=== PATIENT | female | born 1985 | race Caucasian/White ===

== ENCOUNTER 2023-04-26 09:59 | Outpatient (AMB) | payer OTHER, SELFPAY ==
--- NOTE | 2023-04-26 10:10 | MHC.PC.OV ---
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 Patient is requesting referral for RETAIL LEADER. 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 Radha Nasocort Symbicort, Albuterol Needs Spacer Buproion SR 150 QAM, Citalopram 20mg MVI PMHx: Hypothyroidism, Anxiety, Depression & Diff concentration. Asthma, IBS/Constipation SurgHx: Ventral hernia repair, D&C of placenta after childbirth. [place] teeth FHx: Mom: Factor V Leiden, TIA, Arthritis, Anxiety. Dad: HLD - diet controlled, Pigment disersion Glaucoma. mGF CML. CAD, ID. mGM: Parkinsons, Afib & HF. pGF: Hypothyroid, ?CLL. pGF: Lung CA SocHx: Moved from [place], Nonsmoker, EtOH 3-7 dr per week. No drugs PFSH Medical History (Updated 04/26/23 @ 11:11 by John Paul Cervantes) Migraine headache Hypothyroid Near sighted Irritable bowel syndrome with constipation GERD (gastroesophageal reflux disease) Depression Anxiety Surgical History (Updated 04/26/23 @ 10:23 by Alana Zamarripa CMA) History of surgery of uterus H/O ventral hernia repair Family History (Updated 04/26/23 @ 10:30 by Alana Zamarripa CMA) Mother Factor 5 Leiden mutation, heterozygous High blood pressure Acute anxiety Father Asthma High cholesterol Acute anxiety Paternal Grandmother Thyroid disease Parkinsons Maternal Grandfather High blood pressure High cholesterol Cardiovascular disease Paternal Grandfather High cholesterol Lung cancer Sister Acute anxiety Depression Social History Housing: House Patient Tobacco Use Status: Never used Tobacco e-Cigarette/Vaping Use: Never Used service: No Current occupational status: employed 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 1. Little interest or pleasure in doing things: not at all 2. Feeling down, depressed, or hopeless: not at all 3. Trouble falling or staying asleep, or sleeping too much: several days 4. Feeling tired or having little energy: not at all 5. Poor appetite or overeating: several days 6. Feeling bad about yourself - or that you are a failure or have let yourself or your family down: not at all 7. Trouble concentrating on things, such as reading the newspaper or watching television: several days 8. Moving or speaking so slowly that other people could have noticed. Or the opposite - being so fidgety or restless that you have been moving around a lot more than usual: more than half the days 9. Thoughts that you would be better off or of hurting yourself in some way: not at all Total score: 5 Depression Screening Interpretation: Negative Depression Screening Done: Yes 05830 - PHQ-9 Billing: Yes Source: Developed by Drs. Ad Barnes, Nelida Bender, Alexei Arndt and colleagues, with an educational yadiel from [employer]. Thrive Questionnaire Date Thrive assessed: 04/26/23 I am a: Patient What is your living situation today?: I have a steady place to live Within the past 12 months, did the food you bought not last and you didn't have the money to get more?: Never true Within the past 12 months, did you worry whether your food would run out before you got money to buy more?: Never true Do you have trouble paying for medicines?: No Do you have trouble getting transportation to medical appointments?: No Do you have trouble paying your heating and electricity bill?: No Do you have trouble taking care of your child, family member or friend?: No Do you have trouble with day-to-day activities such as bathing, preparing meals, shopping, managing finances, etc.?: No Are you currently unemployed and looking for a job?: No Are you interested in more education?: No THRIVE Score: 0 TEREZA-7 AMB Questionnaire TEREZA-7 Date TEREZA - 7 assessed: 04/26/23 Feeling nervous, anxious, or on edge: 2 = More than half the days Not being able to stop or control worryin = Several days Worrying too much about different things: 1 = Several days Trouble relaxin = Several days Being so restless that it is hard to sit still: 2 = More than half the days Becoming easily annoyed or irritable: 1 = Several days Feeling afraid as if something awful might happen: 0 = Not at all Total TEREZA-7 score (0-4 normal; 5-9 mild; 10-14 moderate; 15-21 severe): 8 Source: Developed by Drs. Ad Barnes, Nelida Bender, Alexei Arndt and colleagues, with an educational yadiel from [employer]. TEREZA-7 Assessment Billing TEREZA-7 Assessment Tool: TEREZA-7 Assessment 80197 Review of Systems Const Denies chills, Denies fatigue, Denies fever(s), Denies headache(s) and Denies weakness ENT Denies dizziness and Denies headache(s) Card Denies chest pain, Denies lightheadedness, Denies dyspnea and Denies other (Palpitations) Resp Denies cough, Denies dyspnea, Denies wheezing and Denies other ( shortness of breath) Musc Denies numbness and Denies tingling Neuro Denies dizziness, Denies headache(s), Denies numbness, Denies tingling, Denies paresthesias and Denies weakness Psych Denies anxiety and Denies depression Endo Denies fatigue Aller/Immun Denies wheezing Physical exam (Primary Care) Vital Signs: Last Vital Signs Pulse 62 04/26/23 10:12 BP 122/72 04/26/23 10:12 Pulse Ox 100 04/26/23 10:12 Oxygen Delivery Method Room Air 04/26/23 10:12 BMI result Body Mass Index 24.7 Tobacco/Smoking Status: Tobacco use Status Tobacco use date assessed 04/26/23 04/26/23 10:18 Patient Tobacco Use Status Never used Tobacco 04/26/23 10:18 e-Cigarette/Vaping Use Never Used 04/26/23 10:18 PHQ-9: PHQ-9 Score PHQ-9: Total score 5 04/26/23 10:34 Depression Screening Interpretation: Negative Thrive Assessment: Date of Thrive Assessment Date Thrive assessed 04/26/23 04/26/23 10:34 Const General: no acute distress and well developed Nutritional Appearance: well nourished Orientation/consciousness: patient oriented x3 HENMT Head: Yes normocephalic and Yes atraumatic Eyes General: appearance normal, both eyes and all related structures Pupils: Equal, round and reactive pupils present EOM: EOMs intact bilaterally Resp Effort & Inspection: normal respiratory effort Auscultation: clear to auscultation bilaterally Cardio Rate: regular rate Rhythm: regular rhythm Heart sounds: S1 normal heart sound present, S2 normal heart sound present, no gallops, no murmurs and no rubs Neuro General: patient oriented x3 and gait normal Cranial nerves: Yes Equal, round and reactive pupils present Psych Affect: normal affect Assessment and Plan Assessment & Plan (1) Hypothyroid: Code(s): E03.9 - Hypothyroidism, unspecified Plan: Patient?has?been?on?levothyroxine?25?mcg?daily?for?chemically subclinical?hypothyroidism?but?with?symptoms. Prior?provider?had?placed?her?on?25?mcg?daily?and?has?been?stable?on?this. Will?continue?and?check?her?labs (2) Depression with anxiety: Code(s): F41.8 - Other specified anxiety disorders Plan: Stable?on citalopram?and?bupropion Continue?current?medications (3) Difficulty concentrating: Code(s): R41.840 - Attention and concentration deficit Plan: Patient?has?history?of?ADHD?in?her?prior?medication?records?which?will?be?scanned?in. Currently?not?on?any?controlled?substances?however?and?uses?bupropion. She?notes?that?she?may?want?to?increase?bupropion?at?some?point?and?we?can?discuss?this?at?a?subsequent?visit (4) Irritable bowel syndrome with constipation: Code(s): K58.1 - Irritable bowel syndrome with constipation Plan: Hydrate?well Try?a?soluble?fiber?tablet?such?as?FiberCon Can?continue?OTC?MiraLax?intermittently?as?well (5) Asthma: Code(s): J45.909 - Unspecified asthma, uncomplicated Plan: Lungs?are?clear?to?auscultation?today. Has?used?Symbicort?in?the?past?and?has?had?an?albuterol?inhaler?as?well. Will?refill?theses (6) Laboratory exam ordered as part of routine general medical examination: Code(s): Z00.00 - Encounter for general adult medical examination without abnormal findings Plan: Check?lab (7) Screening for cervical cancer: Code(s): Z12.4 - Encounter for screening for malignant neoplasm of cervix Plan: Patient?notes?she?is?due?for?a?follow-up?Pap?smear.??Requests?referral?to?OBGYN Referred Orders: Orders Comprehensive [place]. Panel Fast Today Z00.00 - Encounter for general adult medical examination without abnormal findings Microalbumin, Random (w Creat) Today I10 - Essential (primary) hypertension UA and rflx microscopic Today Z00.00 - Encounter for general adult medical examination without abnormal findings Vitamin D 25-OH Total Today E55.9 - Vitamin D deficiency, unspecified Lipid Panel Today Z00.00 - Encounter for general adult medical examination without abnormal findings Free T4 (Free Thyroxine) Today E03.9 - Hypothyroidism, unspecified Triiodothyronine T3 Total Today E03.9 - Hypothyroidism, unspecified Thyroid Stimulating Hormone Today E03.9 - Hypothyroidism, unspecified Referrals RETAIL LEADER Referral Z12.4 - Encounter for screening for malignant neoplasm of cervix Medications: New levothyroxine 25 mcg PO DAILY 90 days 90 tabs 2RF budesonide-formoterol 160-4.5 mcg/actuation (Symbicort) 1 puff inhalation BID 30 days 10.2 grams 2RF albuterol sulfate 90 mcg/actuation (ProAir HFA) 2 puffs inhalation Q4-6H 30 days PRN 8.5 grams 0RF shortness of breath or wheezing fexofenadine (Radha Allergy) 180 mg PO Q24H 90 days 90 tabs 3RF triamcinolone acetonide (Nasacort) administer into each nostril 1 spray intranasal DAILY 30 days 16.9 mL 3RF bupropion HCl 150 mg PO QAM 90 days 90 tabs 2RF inhalational spacing device (Julio Aerosol [place] Enhancer spacer) As directed, 999 days 1 ea 0RF J45.909 - Unspecified asthma, uncomplicated citalopram 20 mg PO DAILY 90 days 90 tabs 3RF Coding Level of Care Code New Pt Level 3 (79299) Diagnoses Hypothyroid E03.9 Depression with anxiety F41.8 Difficulty concentrating R41.840 Irritable bowel syndrome with constipation K58.1 Asthma J45.909 Laboratory exam ordered as part of routine general medical examination Z00.00 Screening for cervical cancer Z12.4 Additional Codes TEREZA-7 Assessment Billing - TEREZA-7 Assessment Tool: TEREZA-7 Assessment 60718 ([id number])
[2023-04-26 10:12] VITALS: BP 122/72; PULSE 62; O2SAT 100; BMI 24.7
== END 2023-04-26 11:27 | disposition home or self-care (01) ==
PROVIDERS: PCP Family Medicine; Visit Provider Family Medicine
DX: E03.9 Hypothyroidism, unspecified (principal); F41.8 Other specified anxiety disorders; R41.840 Attention and concentration deficit; K58.1 Irritable bowel syndrome with constipation; J45.909 Unspecified asthma, uncomplicated
CPT/HCPCS: 99203

== ENCOUNTER 2023-06-08 09:45 | Outpatient (REF) | payer OTHER, SELFPAY ==
[2023-06-08 18:36] LABS: CT PCR NOT DETECTED (Not Detect.); NG PCR NOT DETECTED (Not Detect.)
[2023-06-09 12:57] LABS: BV Int Neg Control Negative (Negative); BV Int Pos Control Positive (Positive)
[2023-06-13 20:48] LABS: HPV mRNA E6/E7 rflx Not Detected (Not Detected)
== END 2023-06-08 09:46 | disposition home or self-care (01) ==
LOC: HO.LNP 09:45
PROVIDERS: PCP Family Medicine; Visit Provider Advanced Practice Midwife
DX: Z01.419 Encounter for gynecological examination (general) (routine) without abnormal findings (principal); Z11.51 Encounter for screening for human papillomavirus (HPV); Z20.2 Contact with and (suspected) exposure to infections with a predominantly sexual mode of transmission
CPT/HCPCS: 0353U; 87480; 87510; 87624; 87660; 88142

== ENCOUNTER 2023-06-08 09:45 | Outpatient (AMB) | payer OTHER, SELFPAY ==
[2023-06-08 09:49] VITALS: BP 100/58; BMI 24.1
--- NOTE | 2023-06-08 09:49 | A.OFFVIS_ITS ---
Intake Vital Signs 06/08/23 09:49 Height 5 ft 5 in Weight 145 lb BMI 24.1 BP 100/58 L Intake Visit Reasons: New patient Annual Intake Note: Feeling a lump on her left breast but hasn't felt it in a while. 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 Specialist: Floral Department Specialist Present (Aidyn) Allergies cat dander Allergy (Mild, Verified 06/08/23 09:56) itchy, watery eyes, sneezing oxycodone Adverse Reaction (Mild, Verified 06/08/23 09:56) Dizziness Medication List - Last Reconciled 06/08/23 by Mercedes Long CNM albuterol sulfate 90 mcg/actuation (ProAir HFA) 2 puffs inhalation Q4-6H PRN 30 days budesonide-formoterol 160-4.5 mcg/actuation (Symbicort) 1 puff inhalation BID 30 days bupropion HCl 150 mg PO QAM 90 days citalopram 20 mg PO DAILY 90 days fexofenadine (Radha Allergy) 180 mg PO Q24H 90 days inhalational spacing device (Julio Aerosol [place] Enhancer spacer) As directed, 999 days levonorgestrel (Mirena) intrauterine levothyroxine 25 mcg PO DAILY 90 days triamcinolone acetonide (Nasacort) 1 spray intranasal DAILY 30 days Is last menstrual period known: No Post menopausal: No HPI New patient Annual HPI Details Patient is here as a new chaplaincy exam she has moved too many places with schooling and training. 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 She has a 5-year-old child she has a Mirena IUD that was inserted after her child was born. She did have a prolonged labor with a large baby and a prolonged 2nd stage and she was augmented so she did have a hemorrhage with partially retained placenta that was removed in his localized D&C to remove the stuck lobe of the placenta. She wonders about pelvic muscle tone but she has not sure she has time for PT but she is aware that that is an option. She is using the Mirena for control but it also does help with powerhouse engineer periods she only had a very tiny gap of a month or so between stopping control pills and conceiving so she never noticed symptoms of ovulation or anything like that though she did is calendar and conceived right away. She only gets light little spotting every now and then with the Mirena. Patient felt a lump in her left breast around 04:00 o'clock around March and it bothered her for a while and then she kind of forgot about it when she was seeing her new primary in April she still is a little bit concerned even though sometimes she can feel it less and can not fully find it today. Says her could feel it too. [facility] Medical History Migraine headache Hypothyroid Near sighted Irritable bowel syndrome with constipation GERD (gastroesophageal reflux disease) Depression Anxiety Surgical History History of surgery of uterus H/O ventral hernia repair Family History Mother Factor 5 Leiden mutation, heterozygous High blood pressure Acute anxiety Father Asthma High cholesterol Acute anxiety Paternal Grandmother Thyroid disease Parkinsons Maternal Grandfather High blood pressure High cholesterol Cardiovascular disease Paternal Grandfather High cholesterol Lung cancer Sister Acute anxiety Depression Social History (Updated 06/08/23 @ 09:58 by PATRICIA De León) Housing: House Alcohol intake: current Alcohol intake frequency: a few times a week Patient Tobacco Use Status: Never used Tobacco e-Cigarette/Vaping Use: Never Used service: No Current occupational status: employed 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 [employer] Cognitive needs: No Hearing needs: No Vision needs: Yes Female Reproductive History Menstrual Age of Menarche: 14 Duration of menses: other control method: progestin IUCD Total pregnancies: 1 Full term: 1 Number of Living Children: 1 Physical Exam Vital Signs: Last Vital Signs BP 100/58 L 06/08/23 09:49 BMI result Body Mass Index 24.1 Const General: healthy appearing, comfortable, no acute distress, well developed and alert Nutritional Appearance: average body habitus Orientation/consciousness: patient oriented x3 Limitations: no limitations HEENT Head: Yes normocephalic Neck Neck: Yes normal visual inspection Chest Other: Her left breast is larger than her right but I could not appreciate a mass in the area that the patient felt it in at 04:00 o'clock on the left breast nevertheless I will have her have a mammogram and ultrasound in that breast. Chest palpation & inspection: normal inspection of the chest Breast/axilla inspection: normal inspection of the breasts and normal inspection of the axillae Breast/axilla palpation: normal palpation of the breasts and normal palpation of the axillae Resp Effort & Inspection: normal respiratory effort GI Inspection: Yes normal to inspection, No Abdominal wall edema and No distended Palpation (GI): Soft to palpation and nontender Other: Normal external exam vagina pink and normal cervix multiparous pink smooth with Mirena string easily visible uterus small anteverted mobile nontender adnexa nontender good tone with Kegel. General: Yes bladder normal to palpation External Female Exam: normal external appearance and normal appearance of the urethra Speculum Exam - Vagina: normal appearance of the vagina, normal palpation and normal vaginal discharge Speculum Exam - Cervix: normal appearance of the cervix, normal palpation and nontender Bimanual exam- vagina & uterus: normal bimanual exam, normal palpation, uterine size normal, bladder normal to palpation, consistency normal, normal palpation, uterine mobility normal, uterine shape normal, No Cervical tenderness present, non-tender and no cervical motion tenderness Bimanual Exam- Adnexa, other: normal adnexae, no masses, normal and No adnexal tenderness Neuro General: patient oriented x3 Assessment & Plan Assessment & Plan (1) Breast mass: Comment: Patient feels mass at 04:00 o'clock left breast occasionally more prominent than other times, since March. Code(s): N63.0 - Unspecified lump in unspecified breast (2) Well woman exam with routine gynecological exam: Code(s): Z01.419 - Encounter for gynecological examination (general) (routine) without abnormal findings (3) Screening for cervical cancer: Code(s): Z12.4 - Encounter for screening for malignant neoplasm of cervix (4) Encounter for screening examination for sexually transmitted disease: Code(s): Z11.3 - Encounter for screening for infections with a predominantly sexual mode of transmission (5) Presence of 52 mg levonorgestrel-releasing intrauterine device (IUD): Comment: Inserted about 8 weeks 5 years ago in [place]. Code(s): Z97.5 - Presence of (intrauterine) contraceptive device Plan -----Discussed in this visit the following: healthy balanced diet, regular and consistent exercise, getting recommended health screens, doing the best she can for her particular health concerns, kegel exercises, pap smear screening and fo llowup recommendations, mammography screening and SBE, normal changes in cycles in her life stage--- . Reviewed that while the package still says 5 years there are new or recommendations said it can be left in longer but there is no way to tell exactly when the hormonal effect diminishes however extensive discussion was done around paying close attention to how she feels in both subtle ways and more obvious ways in terms of return to menses reviewed warning signs or symptoms of ovulation that she should be alert to and if she did ever suspect that ovulation had return and therefore menses would soon return that would be a sign that there was insufficient hormonal reserve in the Mirena anymore and she should use another method of control as a backup method such as condoms. The Mirena could be replaced at any time that she so chooses though if she does get menses it is best to do it at the time of menses. Discussed her concern about the breast mass she is really hoping it is nothing more than a small cyst but she would feel better having it checked out so I am ordering a diagnostic mammogram and ultrasound for that breast. She did not feel she needed any other blood work. RTC p.r.n. for chaplaincy annual or when desires for Mirena replacement. Orders: Orders Bacterial Vaginosis Panel Today Z11.3 - Encounter for screening for infections with a predominantly sexual mode of transmission MM tomosynthesis diagnostic LT Today N63.0 - Unspecified lump in unspecified breast US breast LT complete Today N63.0 - Unspecified lump in unspecified breast CT NG by PCR Today Z11.3 - Encounter for screening for infections with a predominantly sexual mode of transmission Pap Smear Today Z12.4 - Encounter for screening for malignant neoplasm of cervix Coding Level of Care Code New Pt Prev Care 18-39yr([id number] Diagnoses Breast mass N63.0 Well woman exam with routine gynecological exam Z01.419 Screening for cervical cancer Z12.4 Encounter for screening examination for sexually transmitted disease Z11.3 Presence of 52 mg levonorgestrel-releasing intrauterine device (IUD) Z97.5
== END 2023-06-08 11:10 | disposition home or self-care (01) ==
PROVIDERS: PCP Family Medicine; Visit Provider Advanced Practice Midwife
DX: Z01.419 Encounter for gynecological examination (general) (routine) without abnormal findings (principal); N63.23 Unspecified lump in the left breast, lower outer quadrant; Z97.5 Presence of (intrauterine) contraceptive device
CPT/HCPCS: 99385

== ENCOUNTER → 2023-07-06 14:30 | Outpatient (BNV) | payer OTHER, SELFPAY | PROVIDERS: PCP Family Medicine; Visit Provider Radiology Diagnostic Radiology | DX: N63.23 Unspecified lump in the left breast, lower outer quadrant (principal) | CPT/HCPCS: 76642; 77062; 77066 ==

== ENCOUNTER 2023-07-06 14:35 | Outpatient (REF) | payer OTHER, SELFPAY ==
--- NOTE | ~2023-07-06 | MM_ITS ---
EXAMINATION: MM DIAGNOSTIC DIGITAL BREAST TOMOSYNTHESIS, BILATERAL US BREAST LIMITED, LEFT MAMMOGRAPHY: CLINICAL INFORMATION: 38-year-old female complaining of palpable abnormality left breast 4:00 axis, of which she nor her provider could feel currently. Patient states it comes and goes . COMPARISON: Mammography: None. Baseline exam. TECHNIQUE: Digital breast tomosynthesis is performed in both the craniocaudal and mediolateral oblique views along with computer-aided detection (CAD). Synthesized 2D images are generated from the tomosynthesis. FINDINGS: The breasts are heterogeneously dense, which may obscure small masses (ACR BI-RADS breast composition Category c). There are no suspicious masses, suspicious grouped calcifications, or areas of architectural distortion in either breast. There is no mammographic abnormality in the 4:00 axis left breast. Bilateral sternalis muscles. There are no skin or axillary abnormalities. ULTRASOUND: CLINICAL INFORMATION: As above. COMPARISON: None TECHNIQUE: Targeted sonographic evaluation was performed using a high frequency linear transducer. Left breast lower outer quadrant was scanned. Selected archived documentation. FINDINGS: LEFT BREAST: There is a mixture of fatty and fibroglandular tissue. No suspicious mass is seen. There is no pathologic acoustic shadowing. No cystic abnormalities. No correlate to the region of palpable concern. MM/MM tomosynthesis diagnostic BI IMPRESSION: No mammographic evidence of malignancy in either breast. Palpable focus in the left breast 4:00 axis demonstrates no mammographic or sonographic correlate. Recommend clinical management. OVERALL ASSESSMENT: Mammography: BI-RADS 1 - Negative Ultrasound: BI-RADS 1 - Negative RECOMMENDATION: 1. Patient should be managed based on the clinical impression. Decision to proceed with biopsy should be based on clinical grounds and degree of clinical concern. 2. Otherwise, routine annual screening mammography at age 42. This patient's information was entered into a reminder system with a target due date for their next mammogram.
== END 2023-07-06 14:36 | disposition home or self-care (01) ==
LOC: HO.MAMMO 14:35
PROVIDERS: PCP Family Medicine; Visit Provider Advanced Practice Midwife
DX: N63.23 Unspecified lump in the left breast, lower outer quadrant (principal)
CPT/HCPCS: 76642; 77062; 77066

== ENCOUNTER → 2024-02-15 16:27 | Outpatient (AMB) | payer OTHER, SELFPAY ==
--- NOTE | 2024-02-15 16:37 | MHC.PC.OV ---
Vital Signs 02/15/24 16:41 Height 5 ft 5 in Weight 148 lb 8 oz BMI 24.7 BP 120/60 Blood Pressure Location Rt brachial Position Sitting Respiration 14 Pulse 69 Pulse Source Pulse Oximeter Temp 98.7 F Temp Source Oral Pulse Oximetry (%) 98 Oxygen Delivery Method Room Air Intake Visit Reasons: Resched 12/20: CPE with f/u labs and health maint Intake Note: CPE Allergies cat dander Allergy (Mild, Verified 02/15/24 16:38) itchy, watery eyes, sneezing oxycodone Adverse Reaction (Mild, Verified 02/15/24 16:38) Dizziness Medication List - Last Reconciled 02/15/24 by Peng Mantilla MD albuterol sulfate 90 mcg/actuation (ProAir HFA) 2 puffs inhalation Q4-6H PRN 30 days budesonide-formoterol 160-4.5 mcg/actuation (Symbicort) 1 puff inhalation BID 30 days bupropion HCl SR 150 mg PO QAM 90 days citalopram 30 mg PO DAILY fexofenadine (Radha Allergy) 180 mg PO Q24H 90 days inhalational spacing device (Julio Aerosol [place] Enhancer spacer) As directed, 999 days levonorgestrel (Mirena) intrauterine levothyroxine 25 mcg PO DAILY 90 days ondansetron 4 mg PO Q8H PRN 30 days triamcinolone acetonide (Nasacort) 1 spray intranasal DAILY 30 days Tobacco use date assessed: 02/15/24 Dental Screening Dental Screen Date: 02/15/24 Did you have a dental visit in the last 12 months?: Yes Did you have a dental problem in the last 6 months where you did not have access to dental care?: No Was dental information given to patient?: Patient has dentist HPI Resched 12/20: CPE with f/u labs and health maint HPI Details 38 y/o female presents for a CPE with f/u labs and health maintenance. Had seen ObGyn for breast mass 06/08/23 - they had ordered diagnostic mammogram and ultrasound. Mammogram 07/06/23 showed no mammographic evidence of malignancy in either breast. She is up to date with her pap smear and had done this in the spring. Labs drawn 12/21/23 at [facility]. TC 156. Triglycerides 51. HDL 80. LDL 65. Low vitamin D level. Notes seasonal affective disorder. She notes she is on omeprazole for GERD. Has not been exercising regularly. HPI Comments History of Present Illness Details Documentation assistance for Peng Mantilla MD, was provided by John Paul Cervantes, Enterprise Application Developer on 02/15/2024 at 4:58 PM EST. I, Dr. Mantilla, have read, observed, and verified documentation. PFS Medical History Migraine headache Hypothyroid Near sighted Irritable bowel syndrome with constipation GERD (gastroesophageal reflux disease) Depression Anxiety Surgical History History of surgery of uterus H/O ventral hernia repair Family History Mother Factor 5 Leiden mutation, heterozygous High blood pressure Acute anxiety Father Asthma High cholesterol Acute anxiety Paternal Grandmother Thyroid disease Parkinsons Maternal Grandfather High blood pressure High cholesterol Cardiovascular disease Paternal Grandfather High cholesterol Lung cancer Sister Acute anxiety Depression Social History Housing: House Alcohol intake: current Alcohol intake frequency: a few times a week Patient Tobacco Use Status: Never used Tobacco e-Cigarette/Vaping Use: Never Used Second Hand Smoke Exposure: No service: No Current occupational status: employed 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 1. Little interest or pleasure in doing things: not at all 2. Feeling down, depressed, or hopeless: not at all 3. Trouble falling or staying asleep, or sleeping too much: not at all 4. Feeling tired or having little energy: more than half the days 5. Poor appetite or overeating: not at all 6. Feeling bad about yourself - or that you are a failure or have let yourself or your family down: several days 7. Trouble concentrating on things, such as reading the newspaper or watching television: several days 8. Moving or speaking so slowly that other people could have noticed. Or the opposite - being so fidgety or restless that you have been moving around a lot more than usual: not at all 9. Thoughts that you would be better off or of hurting yourself in some way: not at all Total score: 4 Depression Screening Interpretation: Negative Depression Screening Done: Yes 63178 - PHQ-9 Billing: Yes Source: Developed by Drs. Ad Barnes, Nelida Bender, Alexei Arndt and colleagues, with an educational yadiel from [employer]. Thrive Questionnaire Date Thrive assessed: 02/15/24 I am a: Patient What is your living situation today?: I have a steady place to live Within the past 12 months, did the food you bought not last and you didn't have the money to get more?: Never true Within the past 12 months, did you worry whether your food would run out before you got money to buy more?: Never true Do you have trouble paying for medicines?: No Do you have trouble getting transportation to medical appointments?: No Do you have trouble paying your heating and electricity bill?: No Do you have trouble taking care of your child, family member or friend?: No Do you have trouble with day-to-day activities such as bathing, preparing meals, shopping, managing finances, etc.?: No Are you currently unemployed and looking for a job?: No Are you interested in more education?: No Please select the resources that you would like help with: None Currently or been in a relationship where the following occur: No concerns reported THRIVE Score: 0 AUDIT C Alcohol Use Questionnaire (AUDIT-C) 1. How often do you have a drink containing alcohol?: 2-3 times a week 2. How many drinks containing alcohol do you have on a typical day when you are drinking?: 1 or 2 3. How often do you have six or more drinks on one occasion?: Never Total Score: 3 TEREZA-7 AMB Questionnaire TEREZA-7 Date TEREZA - 7 assessed: 02/15/24 Feeling nervous, anxious, or on edge: 2 = More than half the days Not being able to stop or control worryin = Several days Worrying too much about different things: 1 = Several days Trouble relaxin = Nearly every day Being so restless that it is hard to sit still: 1 = Several days Becoming easily annoyed or irritable: 1 = Several days Feeling afraid as if something awful might happen: 1 = Several days Total TEREZA-7 score (0-4 normal; 5-9 mild; 10-14 moderate; 15-21 severe): 10 Source: Developed by Drs. Ad Barnes, Nelida Bender, Alexei Arndt and colleagues, with an educational yadiel from [employer]. TEREZA-7 Assessment Billing TEREZA-7 Assessment Tool: TEREZA-7 Assessment 42889 Review of Systems Const Denies chills, Denies fatigue, Denies fever(s), Denies headache(s) and Denies weakness Eyes Denies change in vision ENT Denies dizziness, Denies headache(s), Denies hearing loss, Denies nasal congestion, Denies sinus pain, Denies sinus pressure and Denies sore throat Card Denies chest pain, Denies lightheadedness, Denies dyspnea and Denies other (palpitations) Resp Denies cough, Denies dyspnea and Denies wheezing GI Denies abdominal pain, Denies melena, Denies hematochezia, Denies change in bowel habits, Denies dyspepsia and Denies nausea Denies hematuria and Denies dysuria Musc Denies abnormal gait, Denies myalgias, Denies arthralgias, Denies numbness and Denies tingling Skin/Breast Denies rash, Denies unusual bruising and Denies wounds Neuro Denies abnormal gait, Denies dizziness, Denies headache(s), Denies memory loss, Denies numbness, Denies Sensory deficit (Neuro), Denies tingling and Denies weakness Psych Denies anxiety, Denies depression and Denies memory loss Endo Denies cold intolerance, Denies fatigue, Denies heat intolerance, Denies polydipsia and Denies polyuria Kirill/Lymph Denies easy bleeding and Denies easy bruising Aller/Immun Denies wheezing Physical exam (Primary Care) Vital Signs: Last Vital Signs Temp 98.7 F 02/15/24 16:41 Pulse 69 02/15/24 16:41 Resp 14 02/15/24 16:41 BP 120/60 02/15/24 16:41 Pulse Ox 98 02/15/24 16:41 Oxygen Delivery Method Room Air 02/15/24 16:41 BMI result Body Mass Index 24.7 Tobacco/Smoking Status: Tobacco use Status Tobacco use date assessed 02/15/24 02/15/24 16:44 Patient Tobacco Use Status Never used Tobacco 02/15/24 16:44 e-Cigarette/Vaping Use Never Used 02/15/24 16:44 PHQ-9: PHQ-9 Score PHQ-9: Total score 4 02/15/24 16:44 Depression Screening Interpretation: Negative Thrive Assessment: Date of Thrive Assessment Date Thrive assessed 02/15/24 02/15/24 16:44 Currently or been in a relationship where the following occur: No concerns reported Const General: no acute distress, well developed, alert and awake Nutritional Appearance: well nourished Orientation/consciousness: patient oriented x3 HENMT Head: Yes normocephalic and Yes atraumatic Ears: hearing grossly normal bilaterally and TM's normal bilaterally General nose exam: Normal external nose present and Normal nares present Mouth: Normal oral and palatal mucosa present and moist mucous membranes Teeth and gingiva: dentition normal Throat: Yes posterior oropharynx normal Eyes General: appearance normal, both eyes and all related structures Pupils: Equal, round and reactive pupils present and Pupil accommodation reflex normal EOM: EOMs intact bilaterally Neck Neck: Yes normal visual inspection, Yes no lymphadenopathy and Yes trachea midline Thyroid: Thyroid normal Carotids: no bruits Lymphatic: no lymphadenopathy noted Chest Chest palpation & inspection: normal inspection of the chest Resp Effort & Inspection: normal respiratory effort Auscultation: clear to auscultation bilaterally Cardio Rate: regular rate Rhythm: regular rhythm Heart sounds: S1 normal heart sound present, S2 normal heart sound present, no gallops, no murmurs and no rubs Bruits: no abdominal aortic bruits and no carotid bruits GI Palpation (GI): No Abdominal aortic bruit present, Soft to palpation, nontender, No hepatosplenomegaly present and No Rebound tenderness present Auscultation: normal bowel sounds General: Yes no CVA tenderness Back/Spine/Pelvis Back: no CVA tenderness Cervical Spine: cervical ROM normal and No Cervical spine tenderness Thoracic/Lumbar Spine: thoraco-lumbar ROM normal, No pain with thoraco-lumbar ROM, No thoracic spinal tenderness and No lumbar spinal tenderness Skin Lesions: no lesions Rashes: no rashes Trauma: no lacerations or abrasions Wounds: no wounds Nails: normal Neuro General: patient oriented x3 Cranial nerves: Yes Equal, round and reactive pupils present Cognition (Neuro): normal cognition Gait exam (Neuro): Normal gait present Motor exam (neuro): 5/5 motor strength present throughout Sensory Exam: No Sensory deficit (Neuro) Deep tendon reflexes (DTR's): Right patellar reflex intensity grade: 2+ and Left patellar reflex intensity grade: 2+ Extrem General: Yes normal to inspection and No edema Psych Appearance: grossly normal Affect: normal affect Attitude: cooperative Thought process: Normal thought process present Coding Level of Care Code Est Pt Level 3 (05841) Est Pt Prev Care 18-39y(89056) Diagnoses Adult general medical exam Z00.00 Breast mass N63.0 GERD (gastroesophageal reflux disease) K21.9 Low vitamin D level R79.89 Seasonal affective disorder F33.8 Screening for cervical cancer Z12.4 Breast cancer screening by mammogram Z12.31 Additional Codes TEREZA-7 Assessment Billing - TREEZA-7 Assessment Tool: TEREZA-7 Assessment 62187 ([id number]) PHQ-9 - 22789 - PHQ-9 Billing: Yes ([id number]) Assessment & Plan Assessment & Plan (1) Adult general medical exam: Code(s): Z00.00 - Encounter for general adult medical examination without abnormal findings Category: Medical Plan: 38-year-old?female?presents?for?complete?physical?exam Encouraged?healthy?diet?with?active?lifestyle?and?plenty?of?exercise (2) Breast mass: Comment: Patient feels mass at 04:00 o'clock left breast occasionally more prominent than other times, since March. Code(s): N63.0 - Unspecified lump in unspecified breast Category: Medical Plan: Imaging?did?not?show?any?lesions?suspicious?for?malignancy Patient?says?this?has?resolved.??She?will?let?me?know?if?she?has?any?further?problems. (3) GERD (gastroesophageal reflux disease): Code(s): K21.9 - Gastro-esophageal reflux disease without esophagitis Category: Medical Plan: GERD?and?IBS She?has?OTC?PPI?and?H2?giovani?at?home. Advised?she?use?these?in?a?preventative?strategy She?would?like?a?referral?to?gastroenterology.??Will?refer?to?C?GI (4) Low vitamin D level: Code(s): R79.89 - Other specified abnormal findings of blood chemistry Category: Medical Plan: Advised?she?use?an?OTC?vitamin-D?supplement Will?recheck?labs?when?we?recheck?her?thyroid?levels (5) Seasonal affective disorder: Code(s): F33.8 - Other recurrent depressive disorders Category: Medical Plan: Advised?full?spectrum?light (6) Screening for cervical cancer: Comment: 06/08/2023 Pap is negative with negative HPV Code(s): Z12.4 - Encounter for screening for malignant neoplasm of cervix Category: Medical Plan: Followed?by?Mercedes?Desha?and?patient?had?a?recent?Pap?smear?which?was?negative Up-to-date Follow-up?with?professor of communication and writing?as?recommended (7) Breast cancer screening by mammogram: Code(s): Z12.31 - Encounter for screening mammogram for malignant neoplasm of breast Category: Medical Plan: Patient?had?mammogram?and?ultrasound?for?concern?of?breast?lump?which?she?says?has?resolved.??No?evidence?of?malignancy?was?seen. She?will?let?me?know?if?she?has?any?further?problems Will?resume?screening?at?age?42?or?sooner?if?any?problems. Orders: Referrals Gastroenterology Referral K21.9 - Gastro-esophageal reflux disease without esophagitis, K58.1 - Irritable bowel syndrome with constipation Medications: Changed From citalopram 30 mg PO DAILY To citalopram 30 mg (1.5 x 20 mg) PO DAILY 90 days 135 tabs 2RF
[2024-02-15 16:41] VITALS: BP 120/60; PULSE 69; RESP 14; TEMP 37.1; O2SAT 98; BMI 24.7
== END ==
PROVIDERS: PCP Family Medicine; Visit Provider Family Medicine
DX: Z00.00 Encounter for general adult medical examination without abnormal findings (principal); N63.0 Unspecified lump in unspecified breast; F33.8 Other recurrent depressive disorders; K21.9 Gastro-esophageal reflux disease without esophagitis; R79.89 Other specified abnormal findings of blood chemistry; Z12.31 Encounter for screening mammogram for malignant neoplasm of breast

== ENCOUNTER → 2024-02-15 16:27 | Outpatient (BNVA) | payer OTHER, SELFPAY | PROVIDERS: PCP Family Medicine; Visit Provider Family Medicine | DX: Z00.00 Encounter for general adult medical examination without abnormal findings (principal); N63.0 Unspecified lump in unspecified breast; K21.9 Gastro-esophageal reflux disease without esophagitis; E55.9 Vitamin D deficiency, unspecified; F33.8 Other recurrent depressive disorders; K58.1 Irritable bowel syndrome with constipation | CPT/HCPCS: 96127 ==

== ENCOUNTER 2024-06-13 10:11 | Outpatient (REF) | payer OTHER, SELFPAY ==
--- OUTSIDE RECORDS SUMMARY | 2024-06-13 12:29 | XMS_ITS | Clinical Summary ---
Author Organization [employer] Address [address] [place] [address] Care Team Providers Care Bridge Design Engineer Name Role Phone Unavailable Primary Care Provider [...]
[2024-06-14 11:25] LABS: Bacterial Vaginosis PCR NEGATIVE (Negative); Candida Group PCR NOT DETECTED (Not Detect); Candida glab krusei PCR NOT DETECTED (Not Detect); Trichomonas vaginalis PCR NOT DETECTED (Not Detect)
== END 2024-06-13 10:12 | disposition home or self-care (01) ==
LOC: HO.LAB 10:11
PROVIDERS: PCP Family Medicine; Visit Provider Advanced Practice Midwife
DX: N89.8 Other specified noninflammatory disorders of vagina (principal)
CPT/HCPCS: 81515

== ENCOUNTER 2024-06-13 10:11 | Outpatient (AMB) | payer OTHER, SELFPAY ==
--- NOTE | 2024-06-13 10:10 | MHC.OFFVIS ---
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 Telephone Instrument Supervisor Required: No Telephone Instrument Supervisor Services: Telephone Instrument Supervisor Present Information Interpreted: clinical only Beauty Artist: Beauty Artist Present Allergies cat dander Allergy (Mild, Verified 06/13/24 10:23) itchy, watery eyes, sneezing oxycodone Adverse Reaction (Mild, Verified 06/13/24 10:23) Dizziness Medication List - Last Reconciled 06/13/24 by Mercedes Long CNM albuterol sulfate 90 mcg/actuation (ProAir HFA) 2 puffs inhalation Q4-6H PRN 30 days budesonide-formoterol 160-4.5 mcg/actuation (Symbicort) 1 puff inhalation BID 30 days bupropion HCl SR 150 mg PO QAM 90 days citalopram 30 mg (1.5 x 20 mg) PO DAILY 90 days fexofenadine (Radha Allergy) 180 mg PO Q24H 90 days inhalational spacing device (Julio Aerosol [place] Enhancer spacer) As directed, 999 days levonorgestrel (Mirena) intrauterine levothyroxine 25 mcg PO DAILY 90 days ondansetron 4 mg PO Q8H PRN 30 days triamcinolone acetonide (Nasacort) 1 spray intranasal DAILY 30 days Is last menstrual period known: No (IUD) HPI HPI 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 She is not having any entry level electrician concerns at all. Her periods have not returned yet occasionally she might get a little bit of spotting but that is about it. She has had the IUD in for about 6 years now she had it put in about 2 months after her 6-year-old was born. She likes the IUD and would be happy to replace it she knows it can stay in for up to 8 years she just wants to be sure she does not get caught unawares if there is some change in availability of long-term methods of control. Imaging last year for the breast lump that she was feeling was negative and in fact the lump that she palpated went away on its own so she has feels very reassured and she decided not to follow through with the breast surgery referral. She does not have any other health concerns she follows through with her primary care provider, Dr. Mantilla. [facility] Medical History Migraine headache Hypothyroid Near sighted Irritable bowel syndrome with constipation GERD (gastroesophageal reflux disease) Depression Anxiety Surgical History History of surgery of uterus H/O ventral hernia repair Family History Mother Factor 5 Leiden mutation, heterozygous High blood pressure Acute anxiety Father Asthma High cholesterol Acute anxiety Paternal Grandmother Thyroid disease Parkinsons Maternal Grandfather High blood pressure High cholesterol Cardiovascular disease Paternal Grandfather High cholesterol Lung cancer Sister Acute anxiety Depression Social History Housing: House Alcohol intake: current Alcohol intake frequency: a few times a week Patient Tobacco Use Status: Never used Tobacco e-Cigarette/Vaping Use: Never Used Second Hand Smoke Exposure: No service: No Current occupational status: employed 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 [employer] Cognitive needs: No Hearing needs: No Vision needs: Yes Female Reproductive History Menstrual Age of Menarche: 14 Duration of menses: 3-5 days control method: progestin IUCD Total pregnancies: 1 Full term: 1 Date of last pap smear: 06/09/23 (negative) History of abnormal pap smear: No Physical Exam Vital Signs: Last Vital Signs BP 118/70 06/13/24 10:13 BMI result Body Mass Index 25.3 Const General: healthy appearing, comfortable, no acute distress, well developed and alert Nutritional Appearance: average body habitus Orientation/consciousness: patient oriented x3 Limitations: no limitations HEENT Head: Yes normocephalic Neck Neck: Yes normal visual inspection Chest Chest palpation & inspection: normal inspection of the chest Breast/axilla inspection: normal inspection of the breasts and normal inspection of the axillae Breast/axilla palpation: normal palpation of the breasts and normal palpation of the axillae Resp Effort & Inspection: normal respiratory effort GI Inspection: Yes normal to inspection, No Abdominal wall edema and No distended Palpation (GI): Soft to palpation and nontender Other: External exam within vagina pink and moist cervix multiparous pink smooth healthy appearing with Mirena string visible clear discharge with small amount of white discharge does not appear consistent with bacterial vaginosis at this time. Patient had no concern about STDs but did want to check for bacterial vaginosis and she will decide on treatment if it shows up discussed all alternatives to metronidazole and Metrogel including boric acid. General: Yes bladder normal to palpation External Female Exam: normal external appearance and normal appearance of the urethra Speculum Exam - Vagina: normal appearance of the vagina, normal palpation and normal vaginal discharge Speculum Exam - Cervix: normal appearance of the cervix, normal palpation and nontender Bimanual exam- vagina & uterus: normal bimanual exam, normal palpation, uterine size normal, bladder normal to palpation, consistency normal, normal palpation, uterine mobility normal, uterine shape normal, No Cervical tenderness present, non-tender and no cervical motion tenderness Bimanual Exam- Adnexa, other: normal adnexae, no masses, normal and No adnexal tenderness Neuro General: patient oriented x3 Assessment & Plan Assessment & Plan (1) Screening for cervical cancer: Comment: 06/08/2023 Pap is negative with negative HPV Code(s): Z12.4 - Encounter for screening for malignant neoplasm of cervix Category: Medical (2) Well woman exam with routine gynecological exam: Code(s): Z01.419 - Encounter for gynecological examination (general) (routine) without abnormal findings Category: Medical (3) Presence of 52 mg levonorgestrel-releasing intrauterine device (IUD): Comment: Inserted about 8 weeks 5 years ago in [place]. Code(s): Z97.5 - Presence of (intrauterine) contraceptive device Category: Social Hx Plan -----Discussed in this visit the following: healthy balanced diet, regular and consistent exercise, getting recommended health screens, doing the best she can for her particular health concerns, kegel exercises, pap smear screening and followup recommendations, mammography screening and SBE, normal changes in cycles in her life stage--- .External exam within vagina pink and moist cervix multiparous pink smooth healthy appearing with Mirena string visible clear discharge with small amount of white discharge does not appear consistent with bacterial vaginosis at this time. Patient had no concern about STDs but did want to check for bacterial vaginosis and she will decide on treatment if it shows up discussed all alternatives to metronidazole and Metrogel including boric acid. Discussed again issues with Mirena. Discussed replacement that if she does get periods that would definitely be time to consider replacement and at the start of the period would be the best time of all. Other than that she could give it the full 8 years if she chose. Discussed that if she desired I would prescribe misoprostol to use 6 hours and 2 hours pre procedure to aid in cervical softening however cervix did appear very multiparous and not super tightly closed. RTC 1 year or p.r.n. she will contact us if she decides it is time to replace the Mirena. Orders: Orders Bacterial Vaginosis Panel Today N89.8 - Other specified noninflammatory disorders of vagina Coding Level of Care Code Est Pt Prev Care 18-39y(69315) Diagnoses Screening for cervical cancer Z12.4 Well woman exam with routine gynecological exam Z01.419 Presence of 52 mg levonorgestrel-releasing intrauterine device (IUD) Z97.5
[2024-06-13 10:13] VITALS: BP 118/70; BMI 25.3
--- OUTSIDE RECORDS SUMMARY | 2024-06-13 11:29 | XMS_ITS | Clinical Summary ---
Author Organization [employer] Address [address] [place] [address] Care Team Providers Care Vibrating Screed Operator Name Role Phone Unavailable Primary Care Provider Unavailabl e Social History Tobacco Use Types Packs/Day Years Used Date Smoking Tobacco: Never Assessed Comments Unknown Sex and Gender Information Value Date Recorded Sex Assigned at Female 03/01/2023 3:35 PM EST Legal Sex Female 3:33 PM EST Gender Identity Female 03/01/2023 3:35 PM EST Sexual Orientation Choose not to disclose 2022 3:37 PM EST Plan of Treatment Health Maintenance Due Date Last Done Comments Depression Screening 1987 HIV Screening 1987 SDOH Screening 1987 Alcohol/Substance Use Screening 1999 Tobacco Screening 1999 Family Planning (PISQ) 2002 Hepatitis C Screening 2005 DTaP/Tdap/Td Vaccines (1 - Tdap) 2006 Hepatitis B Vaccines (1 of 3 - 19+ 3-dose series) 2006 Pap Smear 2008 Cervical Cancer Screening 2017 HPV/Cotest 2017 COVID-19 Vaccine ( - 2023-2 5 season) 2023 Influenza Vaccine (#1) 2023 Zoster Vaccines (1 of 2) 2037 RSV Patients and Pa tients Aged 60 years or older (1 - 1-dose 75+ series) 2062 HIB Vaccines Aged Out No longer eligi ble based on patient's age to complete this topic HPV Vaccines Aged Out No longer eligi ble based on patient's age to complete this topic Hepatitis A Vaccines Aged Out No long er eligible based on patient's age to complete this topic IPV Vaccines Aged Out No longer eligi ble based on patient's age to complete this topic Meningococcal Vaccine Aged Out No savannah noemy eligible based on patient's age to complete this topic Pneumococcal Vaccine: Pediat rics (0 to 5 Years) and At-Risk Patients (6 to 49) Years) Aged Out No longer eligible b ased on patient's age to complete this topic RSV under 20 months Aged Out No longe r eligible based on patient's age to complete this topic Rotavirus Vaccines Aged Out No longer eligible based on patient's age to complete this topic Insurance E[employer]
== END 2024-06-13 11:14 | disposition home or self-care (01) ==
LOC: HO.HWSM 10:12
PROVIDERS: PCP Family Medicine; Visit Provider Advanced Practice Midwife
DX: Z01.419 Encounter for gynecological examination (general) (routine) without abnormal findings (principal); Z97.5 Presence of (intrauterine) contraceptive device
CPT/HCPCS: 99395; 99459

== ENCOUNTER 2025-01-02 11:26 | Outpatient (AMB) | payer OTHER, SELFPAY ==
--- NOTE | 2025-01-02 11:31 | MHC.PC.OV ---
Vital Signs 01/02/25 11:35 Height 5 ft 5 in Weight 157 lb 4 oz BMI 26.2 BP 112/64 Blood Pressure Location Rt brachial Position Sitting Respiration 14 Pulse 94 Pulse Source Pulse Oximeter Temp 98.2 F Temp Source Temporal Artery Scan Pulse Oximetry (%) 98 Oxygen Delivery Method Room Air Intake Visit Reasons: Migraines getting worse Intake Note: Marva presents in the office today due to her Migraines. Patient would like a referral to Dermatology. Patient would like to check her thyroid. Allergies cat dander Allergy (Mild, Verified 01/02/25 11:33) itchy, watery eyes, sneezing oxycodone Adverse Reaction (Mild, Verified 01/02/25 11:33) Dizziness Medication List - Last Reconciled 01/02/25 by Peng Mantilla MD albuterol sulfate 90 mcg/actuation (ProAir HFA) 2 puffs inhalation Q4-6H PRN 30 days budesonide-formoterol 160-4.5 mcg/actuation (Symbicort) 1 puff inhalation BID 30 days bupropion HCl SR 150 mg PO QAM 90 days citalopram 30 mg (1.5 x 20 mg) PO DAILY 90 days fexofenadine (Radha Allergy) 180 mg PO Q24H 90 days inhalational spacing device (Julio Aerosol [place] Enhancer spacer) As directed, 999 days levonorgestrel (Mirena) intrauterine levothyroxine 25 mcg PO DAILY ondansetron 4 mg PO Q8H PRN 30 days triamcinolone acetonide (Nasacort) 1 spray intranasal DAILY 30 days Tobacco use date assessed: 01/02/25 Dental Screening Dental Screen Date: 01/02/25 Did you have a dental visit in the last 12 months?: Yes Did you have a dental problem in the last 6 months where you did not have access to dental care?: No Was dental information given to patient?: Patient has dentist HPI Migraines getting worse HPI Details 39 y/o female presents today with complaints of migraines. She describes migraine as a full head throbbing sensation. She notes she had an episode of significant migraine about a month ago. She denies any migraine aura. Reports episodes of about once a week. [facility], [facility] Medical History Migraine headache Hypothyroid Near sighted Irritable bowel syndrome with constipation GERD (gastroesophageal reflux disease) Depression Anxiety Surgical History History of surgery of uterus H/O ventral hernia repair Family History Mother Factor 5 Leiden mutation, heterozygous High blood pressure Acute anxiety Father Asthma High cholesterol Acute anxiety Paternal Grandmother Thyroid disease Parkinsons Maternal Grandfather High blood pressure High cholesterol Cardiovascular disease Paternal Grandfather High cholesterol Lung cancer Sister Acute anxiety Depression Social History (Updated 01/02/25 @ 11:35 by Socorro Earl [facility]) Housing: House Alcohol intake: current Alcohol intake frequency: a few times a week Patient Tobacco Use Status: Never used Tobacco e-Cigarette/Vaping Use: Never Used Second Hand Smoke Exposure: No service: No Current occupational status: employed 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 1. Little interest or pleasure in doing things: not at all 2. Feeling down, depressed, or hopeless: not at all 3. Trouble falling or staying asleep, or sleeping too much: several days 4. Feeling tired or having little energy: several days 5. Poor appetite or overeating: not at all 6. Feeling bad about yourself - or that you are a failure or have let yourself or your family down: not at all 7. Trouble concentrating on things, such as reading the newspaper or watching television: more than half the days 8. Moving or speaking so slowly that other people could have noticed. Or the opposite - being so fidgety or restless that you have been moving around a lot more than usual: not at all 9. Thoughts that you would be better off or of hurting yourself in some way: not at all Total score: 4 Source: Developed by Drs. Ad Barnes, Nelida Bender, Alexei Arndt and colleagues, with an educational yadiel from [employer]. Thrive Questionnaire Date Thrive assessed: 12/26/24 I am a: Patient What is your living situation today?: I have a steady place to live Within the past 12 months, did the food you bought not last and you didn't have the money to get more?: Never true Within the past 12 months, did you worry whether your food would run out before you got money to buy more?: Never true Do you have trouble paying for medicines?: No Do you have trouble getting transportation to medical appointments?: No Do you have trouble paying your heating and electricity bill?: No Do you have trouble taking care of your child, family member or friend?: No Do you have trouble with day-to-day activities such as bathing, preparing meals, shopping, managing finances, etc.?: No Are you currently unemployed and looking for a job?: No Are you interested in more education?: No Please select the resources that you would like help with: None Currently or been in a relationship where the following occur: No concerns reported THRIVE Score: 0 AUDIT C Alcohol Use Questionnaire (AUDIT-C) 1. How often do you have a drink containing alcohol?: 4 or more times a week 2. How many drinks containing alcohol do you have on a typical day when you are drinking?: 1 or 2 3. How often do you have six or more drinks on one occasion?: Never Total Score: 4 TEREZA-7 AMB Questionnaire TEREZA-7 Date TEREZA - 7 assessed: 02/15/24 Feeling nervous, anxious, or on edge: 2 = More than half the days Not being able to stop or control worryin = Several days Worrying too much about different things: 3 = Nearly every day Trouble relaxin = Nearly every day Being so restless that it is hard to sit still: 3 = Nearly every day Becoming easily annoyed or irritable: 1 = Several days Feeling afraid as if something awful might happen: 1 = Several days Total TEREZA-7 score (0-4 normal; 5-9 mild; 10-14 moderate; 15-21 severe): 14 Source: Developed by Drs. Ad Barnes, Nelida Bender, Alexei Arndt and colleagues, with an educational yadiel from [employer]. Review of Systems Const Denies chills, Denies fatigue, Denies fever(s), Denies headache(s) and Denies weakness ENT Denies dizziness and Denies headache(s) Card Denies dyspnea Resp Denies cough, Denies dyspnea, Denies wheezing and Denies other (shortness of breath) Musc Denies numbness and Denies tingling Neuro Denies dizziness, Denies headache(s), Denies numbness, Denies tingling and Denies weakness Psych Denies anxiety and Denies depression Endo Denies fatigue Aller/Immun Denies wheezing Physical exam (Primary Care) Vital Signs: Last Vital Signs Temp 98.2 F 01/02/25 11:35 Pulse 94 01/02/25 11:35 Resp 14 01/02/25 11:35 BP 112/64 01/02/25 11:35 Pulse Ox 98 01/02/25 11:35 Oxygen Delivery Method Room Air 01/02/25 11:35 BMI result Body Mass Index 26.2 Tobacco/Smoking Status: Tobacco use Status Tobacco use date assessed 01/02/25 01/02/25 11:37 Patient Tobacco Use Status Never used Tobacco 01/02/25 11:37 e-Cigarette/Vaping Use Never Used 01/02/25 11:37 PHQ-9: PHQ-9 Score PHQ-9: Total score 4 01/02/25 11:37 Thrive Assessment: Date of Thrive Assessment Date Thrive assessed 12/26/24 01/02/25 11:37 Currently or been in a relationship where the following occur: No concerns reported Const General: well developed; No acute distress Nutritional Appearance: well nourished Orientation/consciousness: patient oriented x3 HENMT Head: Yes normocephalic and Yes atraumatic Eyes General: appearance normal, both eyes and all related structures Pupils: Equal, round and reactive pupils present EOM: EOMs intact bilaterally Resp Effort & Inspection: normal respiratory effort Neuro General: patient oriented x3 and gait normal Cranial nerves: Yes Equal, round and reactive pupils present Psych Affect: normal affect Coding Level of Care Code Est Pt Level 4 (51696) Diagnoses Migraine headache G43.909 Dermatitis L30.9 Assessment & Plan Assessment & Plan (1) Migraine headache: Code(s): G43.909 - Migraine, unspecified, not intractable, without status migrainosus Category: Medical Plan: Recurrent migraines and currently she is experiencing these about once a week. Will give her a script for sumatriptan Hydrate well and get plenty of sleep Follow-up with her washer carcass who ensure your prescription is up-to-date Start physical therapy as neck and posterior head tension are also a trigger for her (2) Dermatitis: Code(s): L30.9 - Dermatitis, unspecified Category: Medical Plan: Patch of skin at the left cheek with change in texture This does not appear to be neoplastic and I reassured her, however patient would like a referral to Dermatology to discuss Referred Orders: Orders PT Evaluation and Treatment Today G43.909 - Migraine, unspecified, not intractable, without status migrainosus, G44.209 - Tension-type headache, unspecified, not intractable Referrals Dermatology Referral L30.9 - Dermatitis, unspecified Medications: New sumatriptan succinate take 1 tab at onset of headache; if no relief may repeat 1 tab after at least 2 hrs; max = 4 tabs/24 hr PO 9 tabs 3RF 30 days Changed From levothyroxine 25 mcg PO DAILY 90 days 90 tabs 2RF To levothyroxine Patient has been taking 1.5 tablets on Wednesdays. 25 mcg PO DAILY
[2025-01-02 11:35] VITALS: BP 112/64; PULSE 94; RESP 14; TEMP 36.8; O2SAT 98; BMI 26.2
--- OUTSIDE RECORDS SUMMARY | 2025-01-02 14:42 | XMS_ITS | Clinical Summary ---
Author Organization [email or web address] Address [address] [place] [address] Care Team Providers Care Engineering Documentation Specialist Name Role Phone Unavailable Primary Care Provider [...] 1987 HIV Screening 1987 SDOH Screening 1987 Disability Screening 1987 Alcohol/Substance Use Screening 1999 Tobacco Screening 1999 Family Planning (PISQ) 2002 HPV Vaccines (1 - 3-dose series) 2002 Hepatitis C Screening 2005 DTaP/Tdap/Td Vaccines (1 - Tdap) 2006 Hepatitis B Vaccines (1 of 3 - 19+ 3-dose series) 2006 Pap Smear 2008 Cervical Cancer Screening 2017 HPV/Cotest 2017 COVID-19 Vaccine (1 - 2023-2 5 season) 2024 Influenza Vaccine (#1) 2024 Zoster Vaccines (1 of 2) 2037 RSV [...] patient's age to complete this topic Meningococcal B Vaccine Aged Out No l onger eligible based on patient's age to complete this topic Meningococcal Vaccine Aged Out No savannah noemy eligible based on patient's age to complete this topic Pneumococcal Vaccine: Pediat rics (0 to 5 Years) and At-Risk Patients (6 to 49) Years Aged Out No longer eligible b ased on patient's age to complete this topic RSV under 20 months Aged Out No longe r eligible based on patient's age to complete this topic Rotavirus Vaccines Aged Out No longer eligible based on patient's age to complete this topic Insurance [employer]
== END 2025-01-02 11:56 | disposition home or self-care (01) ==
LOC: HO.HMCFM 11:27
PROVIDERS: PCP Family Medicine; Visit Provider Family Medicine
DX: G43.909 Migraine, unspecified, not intractable, without status migrainosus (principal); L30.9 Dermatitis, unspecified

== ENCOUNTER 2025-01-09 09:03 | Outpatient (REF) | payer OTHER, SELFPAY ==
--- OUTSIDE RECORDS SUMMARY | 2025-01-09 09:40 | XMS_ITS | Clinical Summary ---
Author Organization [employer] Address [address] [place] [address] Care Team Providers Care Rig Operator Name Role Phone Unavailable Primary Care [...]
[2025-01-09 11:58] LABS: Alanine Aminotransferase 28 U/L (0-31); Albumin Level 5.0 g/dL (3.5-5.0); Alkaline Phosphatase 49 U/L (39-117); Anion Gap 8 (12-20); Aspartate Amino Transferase 31 U/L (5-31); Blood Urea Nitrogen 8 mg/dL (9-16); Calcium 9.3 mg/dL (8.4-10.2); Carbon Dioxide 28 mmol/L (22-29); Chloride 106 mmol/L (96-108); Estimated Glomerular Filt Rate > 60; Potassium 4.0 mmol/L (3.3-5.1); Sodium 138 mmol/L (135-145); Total Protein 7.3 g/dL (6.5-8.0)
[2025-01-09 12:16] LABS: Free T4 (Free Thyroxine) 0.98 ng/dL (0.71-1.85); Thyroid Stimulating Hormone 1.25 uIU/mL (0.32-4.0)
== END 2025-01-09 09:04 | disposition home or self-care (01) ==
LOC: HO.WFDLDS 09:03
PROVIDERS: Visit Provider Family Medicine
DX: E03.9 Hypothyroidism, unspecified (principal); E55.9 Vitamin D deficiency, unspecified
CPT/HCPCS: 36415; 80053; 82306; 84439; 84443; 84480